=== PATIENT | male | born 1970 | race Caucasian/White ===

== ENCOUNTER 2018-09-28 09:34 | Emergency (ER) | payer BC ==
--- OUTSIDE RECORDS SUMMARY | 2018-09-28 09:57 | XMS REPORT ---
:1970 External Reference #:[id number] Author Organization [facility] Address [address] [place] [address] Phone [phone] Care Team Providers Name Role Phone Basil Montalvo Care Team Information Card Filer Unavailable Basil Montalvo Primary Care Physician Unavailable Payers Type Date Identification Payment Provider Subscriber Numbers Health Maintenance Effective: Policy Number: Essential Plan Stephani Solis [facility] (O) 10/02/2016 [id number] [employer] PayID: [id number] [address] [address] [place] [address] Problems Date Description Provider Status Onset: 07/10/2011 Extrinsic asthma without status Pablo Correa M.D. 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 Active Onset: 10/24/2017 Medial epicondylitis Basil Montalvo M.D. Active Onset: 12/15/2016 Mild intermittent asthma Basil Montalvo M.D. Active Onset: 11/18/2014 Benign prostatic hypertrophy without Basil Montalvo M.D. 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 Active Onset: 11/15/2011 Disorder of eye Pablo Correa M.D. Active Onset: 10/07/2011 Lyme disease Pablo Correa M.D. 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 Therapy /2017 evaluation Midura, bilateral M.D. medial epicondylitis Ventolin HFA 11/23 Active Aerosol 108(90Bas 8.5un inhale 2 puffs Basil T. /2015 e) its every 4 hours Midura, mcg/Act as needed M.D. Ritalin 03/31 Active Tablets 20mg 30tab 1 by mouth Basil T. /2014 s once a day as Midura, needed M.D. Vitamin D3 11/18 Active Capsules 1000Unit 2 Daily Basil T. High Potency /2014 Katia MUrsula Concerta 09/04 Active Tablets 54mg 30tab use by mouth F90.0 Basil T. /2012 ER s q.d as needed Katia M.D. Mometasone 07/01 Active Cream 0.1% 45uni apply 1 to 2 Basil T. Furoate /2010 ts times daily as Midrob, instructed. M.D. not for more than 2 weeks in arow. Multivitamin Active Tablets 1 po once or Unknown Adult /0000 twice a week Fish Oil 0000 Active Capsules once a wk Unknown /0000 Azithromycin 09/15 Hx Tablets 250mg 6tabs take 2 tablets R05 Lillian by mouth today Jennifer, - then take 1 INTEGRITY ASSESSOR 09/26 tablet daily /2017 for next 4 days L03.011 Doxycycline Hyclate 03/19/2018 - Hx Tablets 100mg 6tabs 2 by mouth once Basil T. 09/15/2018 for each deer Midura, tick bite M.D. Prochlorperazine 12/07/2017 - Hx Tablets 10mg 10tabs take one tablet R1 Carrol Uriarte. Maleate 02/08/2018 every 4-6 hours 9. Osiel, as needed. 7 MANAGER ANIM[employer] Lomotil 12/07/2017 - Hx Tablets 2.5-0.02 13tabs Take 2 pills to Carrol Uriarte. 02/07/2018 5mg start, then one Osiel, by mouth 4 MANAGER ANIMAL times per day for up to 3 days Physical Therapy 10/24/2017 - Hx treatment and 7 Basil Jiménez 02/07/2018 evaluation 7. Midura, bilateral 01 M.D. medial epicondylitis Medrol 10/24/2017 - Hx TBPK 4mg 1pack use as directed M7 Basil Jiménez 12/07/2017 for elbow 7. Midura, inflamation 01 M.D. Medrol Dosepak 10/22/2013 - Hx Tablets 4mg 1pack use as directed [address] [place] [address] 10/29/2014 9Rachael Goldstein M.D. Ritalin 10/18/2013 - Hx Tablets 20mg 60tabs 1 by mouth Lillian 10/30/2014 twice a day KOREY Rodriguez Prednisone 10/17/2013 - Hx Tablets 20mg 21tabs 2 po x 7d then [address] [place] [address] 10/22/2013 1 po qd x 7d 9. Rachael Rodriguez Voltaren 10/17/2013 - Hx Gel 1% 100gm apply to [address] [place] [address] 11/18/2014 painful areas 9. juan pablo Rodriguezd 42 KOREY Physcial Therapy 10/17/2013 - Hx 1units bilat tennis [address] [place] [address] 10/29/2014 elbow 9. Rachael Rodriguez Ritalin 03/21/2013 - Hx Tablets 20mg 60tabs 1 po bid Lillian 09/04/2013 KOREY Rodriguez Doxycycline Hyclate 09/06/2011 - Hx Tablets 100mg 42tabs one tab po bid 70 Shah 10/07/2011 for 21 days Keith. Judith Correa 9 Rafael Bactrim DS 07/02/2011 - Hx Tablets 800-160m 20tabs 1 po bid Shah 07/22/2011 darcy Correa M.D. Singulair 12/30/2010 - Hx Tablets 10mg 90tabs 1 po qd Shah 10/29/2014 Judith Correa M.D. Fexofenadine HCL 07/13/2010 - Hx Tablets 180mg 30tabs 1 po qd Shah 07/08/2011 Judith Correa M.D. Rosa D 24H 07/12/2010 - Hx 30units 1 po qd Shah 06/29/2011 Judith Correa M.D. Ibuprofen 03/10/2010 - Hx Tablets 800mg 50tabs 1 po q8 hours 72 [place] 07/08/2011 tid with food Sissy. Judith Correa, for next five 12 M.D. days then prn Physcial Therapy 03/10/2010 - Hx 1units r tennis elbow 72 [place] 06/29/2011 Cecilia Correa, 12 M.D. Azithromycin 03/09/2009 - Hx Tablets 250mg 9tabs 2 po daily for 47 [place] 12/15/2009 three days and Michaela Correa, one for three 0 M.D. days Prednisone 03/09/2009 - Hx Tablets 10mg 10tabs 2 daily x for 5 47 [place] 03/10/2010 days Michaela Correa, 0 M.DDanie Zithromax 01/07/2009 - Hx Tablets 250mg 6Tabs 2 po qd today , 46 Lillian 03/09/2009 then 1 po qd 6. Jennifer, times 4 0 INTEGRITY ASSESSOR Proventil HFA 12/05/2008 - Hx Aerosol 108mcg/A 1units 2 puffs q4h prn J4 Shah 11/17/2015 ct shortness of 5. Judith Correa breath 20 M.D. Proventil HFA 12/05/2008 - Hx Aerosol 108(90Ba 6.700gm 2 puffs every 4 Basil T. 11/23/2015 se) hours as needed Midura, mcg/Act M.DDanie Medrol Dosepack 05/01/2004 - Hx 4mg 1units as directed Shah 01/07/2009 Judith Correa M.D. Prednisone 02/15/1999 - Hx Tabs 20mg 18tabs 3Tabs PO qd X Geo J. 12/05/2008 3D, 2 T PO qd X Breiman, 3D, 1 PO qd M.D. X 3 Da And D/C Prednisolone 05/26/1997 - Hx 20mg 0units 2 PO qd For 2 D Randy FDanie 06/02/1997 Petr Snowden M.D. Dec By 1/2 Tab Q 2D, Then Stop Valisone Cream 05/26/1997 - Hx .1% 45gm Apply tid prn Randy FDanie 09/02/1998 Rafael Snowden Immunizations CPT Code Status Date Vaccine Reaction Lot # [id number] Given 09/06/2018 Influenza vac quadrivalent preservative free 3yrs and up [address] Given 10/11/2015 Influenza Vac, Quadriv[place], [place] [address] Given 08/26/2014 DO Not Use Split Influenza Virus Vaccine 62967 Given 08/06/2013 Preservative free flu 3 yrs+ and older [address] Given 09/04/2012 DO Not Use Split Influenza Virus Vaccine [id number] Given 07/22/2011 DO Not Use Split Influenza Virus no reaction noted [id number] Vaccine [id number] Given 07/08/2011 Tdap Tetanus, W Pertussis [id number] Vital Signs Date Vital Result Comment 09/26/2018 BP Systolic 140 mmHg BP Diastolic 82 mmHg Heart Rate 79 /min Body Temperature 97.7 F Respiratory Rate 16 /min O2 % BldC Oximetry 99 % Height 75.5 inches 6'3.50" measured 12/15/16 Weight 230.00 lb BMI (Body Mass Index) 28.4 kg/m2 09/15/2018 BP Systolic 134 mmHg BP Diastolic 66 mmHg Heart Rate 78 /min Body Temperature 97.2 F Respiratory Rate 17 /min O2 % BldC Oximetry 98 % Ra Height 75.5 inches 6'3.50" measured 12/15/16 Weight 227.38 lb BMI (Body Mass Index) 28.0 kg/m2 02/08/2018 BP Systolic 116 mmHg BP Diastolic 80 mmHg Heart Rate 96 /min Body Temperature 98.8 F Height 75.5 inches 6'3.50" measured 12/15/16 Weight 229.00 lb BMI (Body Mass Index) 28.2 kg/m2 12/07/2017 BP Systolic 104 mmHg BP Diastolic 62 mmHg Heart Rate 88 /min Body Temperature 99.1 F Respiratory Rate 16 /min Height 75.5 inches 6'3.50" measured 12/15/16 Weight 224.00 lb BMI (Body Mass Index) 27.6 kg/m2 10/24/2017 BP Systolic 122 mmHg BP Diastolic 78 mmHg Heart Rate 60 /min Body Temperature 97.8 F Respiratory Rate 18 /min Height 75.5 inches 6'3.50" measured 12/15/16 Weight 229.00 lb BMI (Body Mass Index) 28.2 kg/m2 08/10/2017 BP Systolic 122 mmHg BP Diastolic 82 mmHg Heart Rate 80 /min Body Temperature 98.1 F Height 75.5 inches 6'3.50" measured 12/15/16 Weight 230.00 lb BMI (Body Mass Index) 28.4 kg/m2 12/15/2016 BP Systolic 120 mmHg BP Diastolic 80 mmHg Heart Rate 78 /min Body Temperature 97.9 F Respiratory Rate 16 /min Height 75.5 inches 6'3.50" measured 12/15/16 Weight 228.12 lb BMI (Body Mass Index) 28.1 kg/m2 Right Visual Acuity Distance 20/20 corrected Left Visual Acuity Distance 20/50 corrected 11/17/2015 BP Systolic 126 mmHg BP Diastolic 90 mmHg Heart Rate 72 /min Body Temperature 97.8 F Respiratory Rate 16 /min Height 74.75 inches 6'2.75" measured 11/17/15 Weight 230.38 lb BMI (Body Mass Index) 29.0 kg/m2 Right Visual Acuity Distance 20/20 corrected Left Visual Acuity Distance 20/25 corrected 11/18/2014 BP Systolic 138 mmHg BP Diastolic 78 mmHg Heart Rate 88 /min Body Temperature 98.7 F Respiratory Rate 16 /min Height 76 inches 6'4" Weight 230.12 lb BMI (Body Mass Index) 28.0 kg/m2 10/30/2014 BP Systolic 140 mmHg BP Diastolic 90 mmHg Heart Rate 60 /min Body Temperature 97.0 F Height 76 inches 6'4" Weight 233.50 lb BMI (Body Mass Index) 28.4 kg/m2 10/17/2013 BP Systolic 134 mmHg BP Diastolic 90 mmHg Heart Rate 64 /min Body Temperature 98.6 F Respiratory Rate 18 /min Height 76 inches 6'4" Weight 225.00 lb BMI (Body Mass Index) 27.4 kg/m2 03/14/2013 BP Systolic 126 mmHg BP Diastolic 80 mmHg Heart Rate 76 /min Body Temperature 96.9 F Respiratory Rate 18 /min Height 76 inches 6'4" Weight 232.00 lb BMI (Body Mass Index) 28.2 kg/m2 12/20/2012 BP Systolic 110 mmHg BP Diastolic 70 mmHg Heart Rate 68 /min Body Temperature 98.4 F Respiratory Rate 16 /min Height 76 inches 6'4" Weight 232.00 lb BMI (Body Mass Index) 28.2 kg/m2 02/15/2012 BP Systolic 90 mmHg BP Diastolic 60 mmHg Heart Rate 68 /min Body Temperature 98.2 F Height 76 inches 6'4" Weight 226.00 lb BMI (Body Mass Index) 27.5 kg/m2 11/15/2011 BP Systolic 110 mmHg BP Diastolic 60 mmHg Heart Rate 60 /min Body Temperature 98.4 F Respiratory Rate 20 /min Height 76 inches 6'4" Weight 229.00 lb BMI (Body Mass Index) 27.9 kg/m2 Right Visual Acuity Distance 20/20 with corrective lens Left Visual Acuity Distance 20/20 10/07/2011 BP Systolic 98 mmHg BP Diastolic 64 mmHg Heart Rate 72 /min Body Temperature 97.0 F Height 76 inches 6'4" Weight 228.00 lb BMI (Body Mass Index) 27.8 kg/m2 09/06/2011 BP Systolic 102 mmHg BP Diastolic 60 mmHg Heart Rate 64 /min Body Temperature 98.8 F Respiratory Rate 20 /min Height 76 inches 6'4" Weight 228.00 lb BMI (Body Mass Index) 27.8 kg/m2 07/22/2011 BP Systolic 120 mmHg BP Diastolic 66 mmHg Heart Rate 66 /min Body Temperature 97.3 F Height 76 inches 6'4" Weight 226.00 lb BMI (Body Mass Index) 27.5 kg/m2 07/08/2011 BP Systolic 130 mmHg BP Diastolic 68 mmHg Heart Rate 72 /min Body Temperature 97.6 F Respiratory Rate 12 /min Height 76 inches 6'4" Weight 226.00 lb BMI (Body Mass Index) 27.5 kg/m2 07/01/2011 BP Systolic 100 mmHg BP Diastolic 68 mmHg Heart Rate 96 /min Body Temperature 99.6 F Respiratory Rate 12 /min O2 % BldC Oximetry 98 % Height 76 inches 6'4" Weight 232.00 lb BMI (Body Mass Index) 28.2 kg/m2 06/29/2011 BP Systolic 108 mmHg BP Diastolic 70 mmHg Heart Rate 68 /min Body Temperature 100.9 F Height 76 inches 6'4" Weight 231.00 lb BMI (Body Mass Index) 28.1 kg/m2 03/10/2010 BP Systolic 122 mmHg BP Diastolic 76 mmHg Heart Rate 76 /min Body Temperature 97.0 F Height 76 inches 6'4" Weight 226.00 lb BMI (Body Mass Index) 27.5 kg/m2 12/15/2009 BP Systolic 110 mmHg BP Diastolic 64 mmHg Heart Rate 88 /min Respiratory Rate 18 /min Weight 240.00 lb 03/09/2009 BP Systolic 118 mmHg BP Diastolic 78 mmHg Heart Rate 72 /min Body Temperature 98.0 F Height 76 inches 6'4" Weight 228.00 lb BMI (Body Mass Index) 27.8 kg/m2 01/07/2009 BP Systolic 116 mmHg BP Diastolic 68 mmHg Heart Rate 72 /min Body Temperature 98.1 F Height 76 inches 6'4" Weight 235.00 lb BMI (Body Mass Index) 28.6 kg/m2 12/05/2008 BP Systolic 120 mmHg BP Diastolic 72 mmHg Heart Rate 72 /min Height 76 inches 6'4" Weight 233.00 lb BMI (Body Mass Index) 28.4 kg/m2 09/02/1998 BP Systolic 150 mmHg BP Diastolic 80 mmHg Body Temperature 98.8 F Weight 218.00 lb 05/05/1998 BP Systolic 102 mmHg Ra LG Cuff BP Diastolic 58 mmHg Ra LG Cuff Body Temperature 97.8 F Weight 202.00 lb Results Test Date Test Result H/L Range Note Laboratory test 06/14/2018 Surgical Pathology SEE RESULT BELOW 1, 2 finding Ua - Non Micro (a) 02/08/2018 Appearance CLEAR Color YELLOW Glucose, U[place] [place] NEG Bilirubin NEG Ketones NEG SP Grav 1.020 Blood NEG PH 7.5 Protein NEG Urobil 0.2 Nitrite NEG Leukocytes (a[place]rex[place] NEG Comprehensive Metabolic Prof 02/08/2018 Sodium 141 mEq/L 134-149 Potassium 4.6 mEq/L 3.6-5.5 Chloride 105 mEq/L 94-112 Carbon Dioxide 29 mEq/L 21-32 Glucose 102 mg/dL 70-105 BUN 17 mg/dL 6-26 Creatinine 0.9 mg/dL 0.6-1.4 BUN/Creat Ratio 18.9 CALC 8.0-36.0 Calcium 9.4 mg/dL 8.6-10.2 Total Protein 7.3 g/dL 6.4-8.3 Albumin 4.8 g/dL 3.8-5.5 Globulin 2.5 g/dL 2.0-4.8 A/G Ratio 1.9 CALC 0.6-2.3 Alk. Phosphatase 50 U/L 22-95 Alt (SGPT) 19 U/L 7-35 Ast (Sgot) 15 U/L 5-34 Total Bilirubin 0.8 mg/dL 0.2-1.3 GFR Non- >60 ml/min/1.73m^ >=60 GFR >60 ml/min/1.73m^ >=60 Lipid Profile 02/08/2018 Cholesterol 195 mg/dL 120-200 Triglycerides 120 mg/dL 30-200 HDL Cholesterol 64 mg/dL 30-70 LDL (Calculated) 107 CALC 0-129 VLDL Cholesterol 24 mg/dL 0-50 HDL Risk Factor 3.0 CALC 0.0-4.4 Laboratory test finding 02/08/2018 PSA 1.0 ng/mL 0.0-4.0 CBC Electronic [facility]ma 02/08/2018 WBC 6.1 x10^3/UL 4.0-10.0 RBC 5.04 x10^6/UL 3.93-6.00 HGB 15.3 g/dL 12.0-17.0 HCT 44 % 35-50 MCV 87.1 fL 80.0-95.0 MCH 30.4 pg 25.6-32.2 MCHC 34.9 g/dL 32.2-36.0 RDW-CV 12.7 % 11.6-14.4 PLT 153 x10^3/UL Low 163-400 3 MPV 8.9 fL Low 9.4-12.4 Keke# 4.25 x10^3/UL 1.56-6.13 Lymph# 1.10 x10^3/UL Low 1.18-3.74 Sandoval# 0.64 x10^3/UL 0.24-0.82 Eos # 0.1 x10^3/UL 0.0-0.5 Baso # 0.02 x10^3/UL 0.01-0.08 Keke% 69.4 % 34.0-70.0 Lymph % 18.0 % Low 20.0-52.0 Sandoval% 10.5 % 5.0-12.0 Eos% 1.8 % 0.7-7.0 Baso% 0.3 % 0.1-1.2 Laboratory test finding 08/10/2017 PSA 0.9 ng/mL 0.0-4.0 Ua - Non Micro ([facility]ma) 12/15/2016 Appearance clear Color yellow Glucose, Urine ([facility]/CTX) neg Bilirubin neg Ketones neg SP Grav >=1.030 Blood neg PH 5.5 Protein neg Urobil 0.2 Nitrite neg Leukocytes ([facility]/Centrex) neg Laboratory test finding 12/15/2016 PSA 3.0 ng/mL 0.0-4.0 Lipid Profile 12/15/2016 Cholesterol 220 mg/dL High 120-200 Triglycerides 132 mg/dL 30-200 HDL Cholesterol 61 mg/dL 30-70 LDL (Calculated) 133 CALC High 0-129 VLDL Cholesterol 26 mg/dL 0-50 HDL Risk Factor 3.6 CALC 0.0-4.4 Comprehensive Metabolic Prof 12/15/2016 Sodium 140 mEq/L 134-149 Potassium 4.5 mEq/L 3.6-5.5 Chloride 104 mEq/L 94-112 Carbon Dioxide 25 mEq/L 21-32 Glucose 99 mg/dL 70-105 BUN 14 mg/dL 6-26 Creatinine 1.0 mg/dL 0.6-1.4 BUN/Creat Ratio 14.0 CALC 8.0-36.0 Calcium 9.6 mg/dL 8.6-10.2 Total Protein 6.9 g/dL 6.4-8.3 Albumin 4.5 g/dL 3.8-5.5 Globulin 2.4 g/dL 2.0-4.8 A/G Ratio 1.9 CALC 0.6-2.3 Alk. Phosphatase 60 U/L 22-95 Alt (SGPT) 22 U/L 7-35 Ast (Sgot) 18 U/L 5-34 Total Bilirubin 0.7 mg/dL 0.2-1.3 GFR Non- >60 ml/min/1.73m^ >=60 GFR >60 ml/min/1.73m^ >=60 Complete Blood Count 12/15/2016 WBC 4.1 x10^3/UL 3.6-9.6 RBC 4.77 x10^6/UL 3.90-5.70 HGB 14.7 g/dL 12.1-17.2 HCT 43 % 36-50 MCV 90.0 fL 82.2-97.4 MCH 30.7 pg 27.6-33.3 MCHC 34.1 g/dL 33.0-35.5 RDW 14.3 % High 11.6-13.7 PLT 179 x10^3/UL 150-400 MPV 6.1 fL Low 7.4-10.4 Gran # 2.6 x10^3/UL 1.5-7.2 Lymph# 1.3 x10^3/UL 0.7-4.9 Sandoval# 0.2 x10^3/UL 0.1-0.9 Gran % 59.3 % 42.2-75.2 Lymph % 33.8 % 20.5-51.1 Sandoval% 6.9 % 1.7-9.3 Ua - Non Micro (a) 11/17/2015 Appearance yellow Color clear Glucose, Urine ([place] [place] neg Bilirubin neg Ketones neg SP Grav 1.025 Blood neg PH 6.5 Protein neg Urobil 0.2 Nitrite neg Leukocytes ([facility] neg Complete Blood Count 11/17/2015 WBC 4.4 x10^3/UL 3.6-9.6 RBC 4.80 x10^6/UL 3.90-5.70 HGB 15.0 g/dL 12.1-17.2 HCT 44 % 36-50 MCV 92.0 fL 82.2-97.4 MCH 31.3 pg 27.6-33.3 MCHC 34.2 g/dL 33.0-35.5 RDW 13.5 % 11.6-13.7 PLT 162 x10^3/UL 150-400 MPV 6.9 fL Low 7.4-10.4 Gran # 3.1 x10^3/UL 1.5-7.2 Lymph# 1.2 x10^3/UL 0.7-4.9 Sandoval# 0.1 x10^3/UL 0.1-0.9 Gran % 67.6 % 42.2-75.2 Lymph % 28.0 % 20.5-51.1 Sandoval% 4.4 % 1.7-9.3 Comprehensive Metabolic Prof 11/17/2015 Sodium 135 mEq/L 134-149 Potassium 4.3 mEq/L 3.6-5.5 Chloride 97 mEq/L 94-112 Carbon Dioxide 31 mEq/L 21-32 Glucose 102 mg/dL 70-105 BUN 14 mg/dL 6-26 Creatinine 0.9 mg/dL 0.6-1.4 BUN/Creat Ratio 15.6 CALC 8.0-36.0 Calcium 8.8 mg/dL 8.6-10.2 Total Protein 7.2 g/dL 6.4-8.3 Albumin 4.6 g/dL 3.8-5.5 Globulin 2.6 g/dL 2.0-4.8 A/G Ratio 1.8 CALC 0.6-2.3 Alk. Phosphatase 52 U/L 22-95 Alt (SGPT) 22 U/L 7-35 Ast (Sgot) 16 U/L 5-34 Total Bilirubin 0.5 mg/dL 0.2-1.3 GFR Non- >60 ml/min/1.73m^ >=60 GFR >60 ml/min/1.73m^ >=60 Lipid Profile 11/17/2015 Cholesterol 204 mg/dL High 120-200 Triglycerides 81 mg/dL 30-200 HDL Cholesterol 55 mg/dL 30-70 LDL (Calculated) 133 CALC High 0-129 VLDL Cholesterol 16 mg/dL 0-50 HDL Risk Factor 3.7 CALC 0.0-4.4 Laboratory test finding 11/17/2015 PSA 0.7 ng/mL 0.0-4.0 4 Comprehensive Metabolic Prof 11/18/2014 Sodium 139 mEq/L 134-149 Potassium 3.7 mEq/L 3.6-5.5 Chloride 104 mEq/L 94-112 Carbon Dioxide 28 mEq/L 21-32 Glucose 78 mg/dL 70-105 BUN 18 mg/dL 6-26 Creatinine 1.1 mg/dL 0.6-1.4 BUN/Creat Ratio 16.4 CALC 8.0-36.0 Calcium 9.9 mg/dL 8.6-10.2 Total Protein 7.1 g/dL 6.4-8.3 Albumin 4.5 g/dL 3.8-5.5 Globulin 2.6 g/dL 2.0-4.8 A/G Ratio 1.7 CALC 0.6-2.3 Alk. Phosphatase 61 U/L 22-95 Alt (SGPT) 28 U/L 7-35 Ast (Sgot) 20 U/L 5-34 Total Bilirubin 0.5 mg/dL 0.2-1.3 Lipid Profile 11/18/2014 Cholesterol 217 mg/dL High 120-200 Triglycerides 119 mg/dL 30-200 HDL Cholesterol 54 mg/dL 30-70 LDL (Calculated) 139 CALC High 0-129 VLDL Cholesterol 24 mg/dL 0-50 HDL Risk Factor 4.0 CALC 0.0-4.4 Laboratory test finding 11/18/2014 PSA 0.6 ng/mL 0.0-4.0 Ua - Non Micro (a) 11/18/2014 Appearance clear Color yellow Glucose, Urine ([facility]/CTX) neg Bilirubin neg Ketones neg SP Grav >1.030 Blood neg PH 5.5 Protein neg Urobil 0.2 Nitrite neg Leukocytes ([facility]/Centrex) neg CBC Electronic (a) 11/18/2014 WBC 7.4 3.6-9.6 RBC 4.87 3.90-5.70 Hemoglobin ([facility]/CMC/CTX) 14.9 g/dL 12.1 - 17.2 Hematocrit ([facility]ma/CMC/CTX) 43.6 % 36.1 - 50.3 Platelets 171 10^3/ul 150-400 Lymph% 19.3 % 17.0-48.0 Mixed% 5.3 Neutrophils % 75.4 Mean Corpuscular Vol 90 82.2-97.4 Mean Corpuscular Hemoglobin 30.6 27.6-33.3 Mean Corpuscular Hemo Concen 34.2 32.0-36.0 RDW 14.1 High 11.6-13.7 Mean Platelet Volume 5.7 5.5-11.0 Lyme Western Blot Ser 09/06/2011 IgG P93 Ab. Absent IgG P66 Ab. Absent IgG P58 Ab. Present IgG P45 Ab. Present IgG P41 Ab. Present IgG P39 Ab. Present IgG P30 Ab. Present IgG P28 Ab. Absent IgG P23 Ab. Present IgG P18 Ab. Present Lyme IgG WB Interp. Positive 5 IgM P41 Ab. Present IgM P39 Ab. Absent IgM P23 Ab. Present Lyme IgM WB Interp. Positive 6 Lyme Igg/M W/RFX West 09/06/2011 Lyme IgG/IgM Ab 6.19 index High 0.00- 0.90 7 Lyme Ab Interp.,Eia Positive Lyme Disease Ab, Quant, IgM 9.43 index High 0.00-0.90 8 Lyme Ab IgM Interp., Eia Positive Laboratory test finding 09/06/2011 Sed Rate ([facility]/Centrex) 25mm Ebv Acute Infection Abs 07/22/2011 Ebv Ab Vca, IgM 3.1 AI High 0.0-0.8 9 Ebv Early Antigen Ab, IgG >8.0 AI High 0.0-0.8 10 Ebv Ab Vca, IgG >8.0 AI High 0.0-0.8 11 Ebv Nuclear Antigen Ab, IgG >8.0 AI High 0.0-0.8 12 Interpretation: SEE NOTE 13 CBC Electronic ([facility]) 07/22/2011 WBC 3.6 3.6-9.6 RBC 4.51 3.90-5.70 Hemoglobin ([facility]/CMC/CTX) 14.1 g/dL 12.1 - 17.2 Hematocrit ([facility]/CTX) 40.6 % 36.1 - 50.3 Platelets 184 10^3/ul 150-400 Lymph% 27.5 20.5-51.1 Mixed% 8.0 Neutrophils % 64.5 Mean Corpuscular Vol 90 82.2-97.4 Mean Corpuscular Hemoglobin 31.3 27.6-33.3 Mean Corpuscular Hemo Concen 34.7 32.0-36.0 RDW 12.5 11.6-13.7 Mean Platelet Volume 7.3 6.5-11.0 Basic Metabolic Profile 07/04/2011 BUN 14 mg/dL 6-26 Calcium 9.3 mg/dL 8.6-10.2 Chloride 105 mEq/L 94-112 Creatinine 1.1 mg/dL 0.6-1.4 Carbon Dioxide 24 mEq/L 21-32 Glucose 104 mg/dL 70-105 Sodium 139 mEq/L 134-149 Potassium 3.9 mEq/L 3.6-5.5 BUN/Creat Ratio 12.9 Calc 8.0-36.0 CBC Electronic ([facility]) 07/04/2011 WBC 5.5 3.6-9.6 RBC 4.04 3.90-5.70 Hemoglobin ([facility]/CMC/CTX) 12.3 g/dL 12.1 - 17.2 Hematocrit ([facility]/CMC/CTX) 36.2 % 36.1 - 50.3 Platelets 218 10^3/ul 150-400 Lymph% 21.3 20.5-51.1 Mixed% 7.7 Neutrophils % 71.0 Mean Corpuscular Vol 90 82.2-97.4 Mean Corpuscular Hemoglobin 30.4 27.6-33.3 Mean Corpuscular Hemo Concen 33.9 32.0-36.0 RDW 12.2 11.6-13.7 Mean Platelet Volume 7.0 6.5-11.0 Laboratory test 07/04/2011 Hemoglobin A1c 5.1 % 4.1-5.7 finding ([facility]/CMC,CX) Anaerobic Culture 07/01/2011 Anaerobic Culture NG5 14, 15 Bottle Bottle Blood Culture 07/01/2011 Aerobic Culture Bottle NG5 14, 16 Thyroid Panel 07/01/2011 Free Thyroxine 0.74 ng/dL 0.61-1.24 14 Thyroxine 5.6 g/dL 5-12 14 TSH 1.44 MIU/ML 0.34-5.60 14 Laboratory test finding 07/01/2011 Amylase 25 U/L 20-120 14, 17 Lipase 19 U/L Low 22-51 14 C Reactive Protein 19.8 mg/dL High Less Than 0.5 14 CPK (Creatine Kinase) 59 U/L 0-200 14 Comp Metabolic Panel 07/01/2011 Sodium 133 mmol/L Low 135-145 14 Potassium 4.0 mmol/L 3.5-5.0 14 Chloride 101 mmol/L 101-111 14 Co2 (Carbon Dioxide) 28.0 mmol/L 22-32 14 Anion Gap 4.0 mmol/L 2-11 14, 18 Glucose 123 mg/dL High 70-100 14 BUN 7 mg/dL 6-24 14 Creatinine 0.9 mg/dL 0.50-1.40 14 One Over Creatinine 1.11 14 BUN/Creatinine Ratio 7.8 Low 8-20 14 Calcium 8.3 mg/dL 8.1-9.9 14 Total Protein 5.9 GM/DL Low 6.2-8.1 14 Albumin 3.3 GM/DL Low 3.6-5.4 14 Globulin 2.6 GM/DL 2-4 14 Albumin/Globulin Ratio 1.3 1-3 14 Bilirubin Total 0.9 mg/dL 0.4-1.5 14, 19 Alkaline Phosphatase 85 U/L 39-117 14 Alt (SGPT) 59 U/L 17-63 14 Ast (Sgot) 46 U/L High 12-42 14 eGFR Non- 93.0 > 60 14 eGFR 119.6 > 60 14, 20 CBC Auto Diff 07/01/2011 White Blood Count 3.9 CUMM Low 4.8-10.8 14 Red Cell Count 4.00 CUMM Low 4.6-6.2 14 Hemoglobin 12.4 g/dL Low 14.0-18.0 14 Hematocrit 36 % Low 42-52 14 Mean Corpuscular Volume 89 um3 80-94 14 Mean Corpuscular Hemoglob 31 pg 27-31 14 Mean Corpuscular HGB Cone 35 g/dL 32-36 14 Redcell Distribution WDTH 14 % 10.5-15 14 Platelet Count 87 CUMM Low 150-450 14, 21 Mean Platelet Volume 7.7 um3 7.4-10.4 14 Gran % 77.7 % 38-83 14 Lymph % 10.3 % Low 25-47 14 Mononuclear % 11.9 % High 1-9 14 Eosinophil % 0.1 % 0-6 14 Basophil % 0 % 0-2 14 Abs Lymphs 0.4 Low 1.0-4.8 14 Abs Mononuclear 0.5 0-0.8 14 Absolute Neutrophil Count 3.0 1.5-7.7 14 Abs Eosinophils 0 0-0.6 14 Abs Basophils 0 0-0.2 14, 22 Urinalysis W/Microscopic 07/01/2011 Ua Color YELLOW Yellow Appearance-Urine CLEAR Clear Specific [place]-Ur 1.010 1.010-1.030 Esterase-Urine NEGATIVE Negative Nitrite NEGATIVE Negative Fsweeuwntcus-Lg-BUN NEGATIVE Negative Protein-Urine 1+ Negative PH-Urine 8.0 5-9 Blood-Urine NEGATIVE Negative Ketones-Urine NEGATIVE Negative Bilirubin-Ur NEGATIVE Negative Glucose-Urine NEGATIVE Negative WBC-Urine 0-2 0-5 RBC-Urine 0-2 0-2 Epith Cells-Ur RARE None Laboratory test finding 07/01/2011 Lactic Acid 0.7 mmol/L 0.5-1.6 Comprehensive Metabolic Prof 06/29/2011 Albumin 4.6 g/dL 3.8-5.5 Alk. Phos. 61 U/L 22-95 Alt (SGPT) 25 U/L 10-40 Ast (Sgot) 23 U/L 5-34 BUN 14 mg/dL 6-26 Calcium 8.8 mg/dL 8.6-10.2 Chloride 102 mEq/L 94-112 Creatinine 1.0 mg/dL 0.6-1.4 Carbon Dioxide 22 mEq/L 21-32 Glucose 120 mg/dL High 70-105 23 Sodium 135 mEq/L 134-149 Total Bilirubin 0.8 mg/dL 0.2-1.3 Total Protein 7.1 g/dL 6.3-8.1 Potassium 4.0 mEq/L 3.6-5.5 Globulin 2.5 g/dL 2.0-4.8 A/G Ratio 1.8 Calc 0.6-2.2 BUN/Creat Ratio 13.6 Calc 8.0-36.0 Laboratory test finding 06/29/2011 TSH 1.52 mIU/L 0.50-6.00 Lipid Profile 06/29/2011 Cholesterol 176 mg/dL 120-200 HDL 44 mg/dL 30-70 Triglycerides 106 mg/dL 30-200 HDL Risk Factor 4.0 CALC 0.0-4.0 LDL (Calculated) 110 CALC 0-129 VLDL (Calculated) 21 mg/dL 0-50 Laboratory test finding 06/29/2011 Monospot (a/Centrex) NEG CBC Manual Diff-[facility] 06/29/2011 WBC 4.8 3.6-9.6 RBC 5.13 3.90-5.70 Hemoglobin (Fma/CMC/CTX) 15.8 g/dL 12.1 - 17.2 Hematocrit (Fma/CMC/CTX) 46.0 % 36.1 - 50.3 Mean Corpuscular Vol 90 82.2-97.4 Mean Corpuscular Hemoglobin 30.8 27.6-33.3 Mean Corpuscular Hemo Concen 34.3 32.0-36.0 Platelets 138 10^3/ul Low 150-400 RDW 12.5 11.6-13.7 Mean Platelet Volume 7.4 6.5-11.0 Neutrophil 60 Band 26 Lymphocytes 7 Monocyte 4 Eosinophils 3 Basophils - Metamyelocytes - Myelocytes - Promyelocytes - Blast - Atypical Lymph - NRBC - Anisocytosis (Fma/CMC/Centrex) - Hypochrom - Polychrom - Poikilocytosis - Macrocytosis - Microcytosis (Fma/CMC/Centrex) - Z#Comment RBC/PLTS NORMAL Ua - Non Micro ([facility]) 06/29/2011 Appearance yellow Color clear Glucose, Urine ([facility]) neg Bilirubin neg Ketones 80 SP Grav 1.015 Blood neg PH 8.5 Protein neg Urobil 1.0 Nitrite neg Leukocytes (a/[facility]) neg Laboratory test finding 06/29/2011 Sed Rate (a/[facility]) 18mm Influenza A&B 06/29/2011 Influenza A NEG Influenza B NEG Lyme Igg/M W/RFX West 06/29/2011 Lyme IgG/IgM Ab <0.91 index 0.00-0.90 24 Lyme Disease Ab, Quant, IgM 0.93 index High 0.00-0.90 25 Lyme Ab IgM Interp., Eia Equivocal Lyme Western Blot Ser 06/29/2011 IgG P93 Ab. Absent IgG P66 Ab. Absent IgG P58 Ab. Absent IgG P45 Ab. Absent IgG P41 Ab. Present IgG P39 Ab. Absent IgG P30 Ab. Absent IgG P28 Ab. Absent IgG P23 Ab. Absent IgG P18 Ab. Absent Lyme IgG WB Interp. Negative 26 IgM P41 Ab. Absent IgM P39 Ab. Absent IgM P23 Ab. Present Lyme IgM WB Interp. Negative 27 1 [id number] 2 SEE RESULT BELOW Name: STEPHANI SOLIS : [address]: Gaston Vallejo MD Acct: [id number] Unit: [id number] AGE: 47 Location: [facility] Re06/14/18 SEX: M Status: DEP REF SPEC: [id number] LULY: 06/14/18-120 [facility] DR: Gaston Vallejo MD REQ: [id number] RECD: 06/14/180746 STATUS: LANDRY BARAHONA DR: Basil Montalvo MD _ ORDERED: LEVEL 4 COMMENTS: [id number] FINAL DIAGNOSIS Colon, at 15 cm, biopsy: -- Hyperplastic polyp. CLINICAL HISTORY Screening/Surveillance for malignancy in asymptomatic patient POST-OPERATIVE DIAGNOSIS Colonoscopy: to terminal ileum; at 15 cm - biopsy GROSS DESCRIPTION The specimen is received in formalin labeled, Colon Polyp Biopsy at 15 cm, and consists of a 0.3 x 0.3 x 0.2 cm pringle-pink irregular soft tissue fragment which is submitted entirely in one cassette. Signed by and Reported on: Hermelinda Morris MD 06/15/181205 END OF REPORT DEPARTMENT OF PATHOLOGY, [address] [place] [address] Joaquim Hanson M.D. Director [facility] # [id number] 3 RESULTS VERIFIED BY REPEAT ANALYSIS 4 FASTING 5 Positive: 5 of the following Borrelia-specific bands: 18,23,28,30,39,41,45,58, 66, and 93. Negative: No bands or banding patterns which do not meet positive criteria. . 6 Note: An equivocal or positive EIA result followed by a negative Western Blot result is considered NEGATIVE. An equivocal or positive EIA result followed by a positive Western Blot is considered POSITIVE by the CDC. . Positive: 2 of the following bands: 23,39 or 41 Negative: No bands or banding patterns which do not meet positive criteria. Criteria for positivity are those recommended by CDC/ASTPHLD. p23=Osp C, d01=cknsjgruj . Note: Sera from individuals with the following may cross react in the Lyme Western Blot assays: other spirochetal diseases (periodontal disease, leptospirosis, relapsing fever, yaws, and pinta); connective autoimmune (Rheumatoid Arthritis and Systemic Lupus Erythematosus and also individuals with Antinuclear Antibody); other infections ([place] Spotted Fever; Bambi-Leon Virus, and Cytomegalovirus). . . 7 Negative <0.91 Equivocal 0.91 - 1.09 Positive >1.09 Note: The CDC currently advises that Western blot testing be performed following all equivocal or positive EIA results. Final diagnosis should include appropriate clinical findings and a positive EIA which is also positive by Western blot. 8 Negative <0.91 Equivocal 0.91 - 1.09 Positive >1.09 . Note: IgM levels may peak at 3-6 weeks post infection, then gradually decline. FDA currently advises that Western Blot testing be performed following all equivocal or positive EIA results. Final diagnosis should include appropriate clinical findings and a positive EIA which is also positive by Western Blot. 9 Negative <0.9 Equivocal 0.9 - 1.0 Positive >1.0 10 Negative <0.9 Equivocal 0.9 - 1.0 Positive >1.0 11 Negative <0.9 Equivocal 0.9 - 1.0 Positive >1.0 12 Negative <0.9 Equivocal 0.9 - 1.0 Positive >1.0 13 EBV Interpretation Chart . Interpretation VCA-IgM EA-IgG VCA-IgG NA-ABS . Susceptible - - - - Acute Infection + +or- +or- - Convalescent Phase +or- +or- + + Chronic or Reactivated - + + +or- Old Infection - - +or- + + Antibody Present - Antibody Absent 14 COMMENTS: N 15 NO GROWTH AFTER 5 DAYS 16 NO GROWTH AFTER 5 DAYS 17 PLEASE NOTE NEW REFERENCE RANGE. 18 Anion gap measurement may be of limited value in the presence of any alkalosis, especially in a combined acid base disorder. . 19 A metabolite of Naproxen, O-desmethylnaproxen, has been shown to interfere with the Jendrassik-Gibson method for measuring total bilirubin. Samples from patients who have taken Naproxen have shown spurious elevation in total bilirubin levels. 20 Because ethnic data is not always readily available, this report includes an eGFR for both -Americans and non- Americans. The National Kidney Disease Education Program (NKDEP) does not endorse the use of the MDRD equation for patients that are not between the ages of 18 and 70, are , have extremes of body size, muscle mass, or nutritional status, or are non- or non-. According to the National Kidney Foundation, irrespective of diagnosis, the stage of the disease is based on the level of kidney function: Stage Description GFR(mL/min/1.73 m(2)) 1 Kidney damage with normal or decreased GFR 90 2 Kidney damage with mild decrease in GFR 60-89 3 Moderate decrease in GFR 30-59 4 Severe decrease in GFR 15-29 5 Kidney failure <15 (or dialysis) 21 NO CLUMPS SEEN ON SMEAR PLATELET COUNT CONFIRMED BY SMEAR ESTIMATE 22 Lymphopenia % Thrombocytopenia 23 RESULT COREY'D 24 Negative <0.91 Equivocal 0.91 - 1.09 Positive >1.09 Note: The CDC currently advises that Western blot testing be performed following all equivocal or positive EIA results. Final diagnosis should include appropriate clinical findings and a positive EIA which is also positive by Western blot. 25 Negative <0.91 Equivocal 0.91 - 1.09 Positive >1.09 . Note: IgM levels may peak at 3-6 weeks post infection, then gradually decline. FDA currently advises that Western Blot testing be performed following all equivocal or positive EIA results. Final diagnosis should include appropriate clinical findings and a positive EIA which is also positive by Western Blot. 26 Positive: 5 of the following Borrelia-specific bands: 18,23,28,30,39,41,45,58, 66, and 93. Negative: No bands or banding patterns which do not meet positive criteria. 27 Note: An equivocal or positive EIA result followed by a negative Western Blot result is considered NEGATIVE. An equivocal or positive EIA result followed by a positive Western Blot is considered POSITIVE by the CDC. . Positive: 2 of the following bands: 23,39 or 41 Negative: No bands or banding patterns which do not meet positive criteria. Criteria for positivity are those recommended by CDC/ASTPHLD. p23=Osp C, n38=pcmxjliov . Note: Sera from individuals with the following may cross react in the Lyme Western Blot assays: other spirochetal diseases (periodontal disease, leptospirosis, relapsing fever, yaws, and pinta); connective autoimmune (Rheumatoid Arthritis and Systemic Lupus Erythematosus and also individuals with Antinuclear Antibody); other infections ([place] Spotted Fever; Bambi-Leon Virus, and Cytomegalovirus). . Procedures Date CPT Code Description Status 06/14/2018 Colonoscopy Completed 12/15/2016 85378 Vision Test- screening test of visual acuity, Completed quantitative, bila 11/17/2015 24287 Vision Test- screening test of visual acuity, Completed quantitative, bila 11/15/2011 73926 Vision Test- screening test of visual acuity, Completed quantitative, bila 07/01/2011 54346 Pulse Oximetry Completed Encounters Type Date Location Provider CPT E/M Dx Office Visit 09/15/2018 10:30a Main Office KOREY Sung 97800 R05 L03.011 Office Visit 02/08/2018 1:20p [facility] Basil Montalvo M.D. 56834 Z00.01 F90.0 N40.0 J45.20 E78.4 D48.5 Office Visit 12/07/2017 3:30p [place] [address] R19.7 Office Visit 10/24/2017 2:00p Main Office Basil Montalvo M.D. 53480 M77.01 M77.02 Office Visit 08/10/2017 11:00a [facility] Basil Montalvo M.D. 00911 F90.0 N40.0 Office Visit 12/15/2016 1:00p [facility] Basil Montalvo M.D. 06095 Z00.00 F90.0 J45.20 N40.0 Office Visit 11/17/2015 10:20a Main Office Basil Montalvo M.D. 41628 Z00.00 F90.0 J45.20 N40.0 Office Visit 11/18/2014 7:20p Main Office Basil Montalvo M.D. 20298 V70.0 314.00 600.00 493.00 Office Visit 10/30/2014 9:00a [facility] Lillian Rodriguez, [facility] 44487 314.00 Office Visit 10/17/2013 3:00p [facility] Lillian Rodriguez, [facility] 42154 719.42 Office Visit 03/14/2013 10:30a [facility] Lillian Rodriguez, [facility] 04978 314.00 Office Visit 12/20/2012 10:00a [facility] Office Krysta Huffman Afnp-C 66752 709.9 Office Visit 02/15/2012 1:20p [facility] Office Pablo Correa M.D. 01497 553.1 Office Visit 11/15/2011 9:00a [facility] Pablo Correa M.D. 57286 379.90 Office Visit 10/07/2011 9:40a [facility] Pablo Correa M.D. 03152 088.81 Office Visit 09/06/2011 11:40a [facility] Pablo Correa M.D. 94187 709.9 Office Visit 07/22/2011 10:40a [facility] Pablo Correa M.D. 04707 780.79 v04.81 Office Visit 07/08/2011 9:00a [facility] Pablo Correa M.D. 82121 780.79 V25.09 V06.5 Office Visit 07/01/2011 9:00a [facility] Pablo Correa M.D. 79730 V70.0 780.79 Office Visit 06/29/2011 10:40a [facility] Pablo Correa M.D. 29971 780.60 780.79 V77.91 Office Visit 03/10/2010 4:00p [facility] Office Pablo Correa M.D. 49236 726.12 Office Visit 12/15/2009 4:00p [facility] Pablo Correa M.D. 92928 553.1 493.00 Office Visit 03/09/2009 11:20a [facility] Pablo Correa M.D. 63096 473.0 Office Visit 01/07/2009 2:15p [facility] Lillian Rodriguez, [facility] 07816 466.0 Office Visit 12/05/2008 9:30a [facility] Pablo Correa M.D. 32301 995.3 493.00 V16.49 Plan of Care 09/26/2018 - Hermelinda Godwin, [id number] CoughNew Medication:Advair Diskus 100-50 mcg/DoseD48.5 Neoplasm of uncertain behavior of skinAllComments:~B_~U_ Medication Management~b_~u_ Patient Understands medications he 's taking? Yes No Are there Barriers to Adherence? Yes No Has the patient been asked about herbal supplements and therapies, and OTC meds? Yes No As always, we strongly encourage a healthy diet and makingphysical activity a part of your every day life. If you have questions about how or where to start, please contact the office.
--- NOTE | 2018-09-28 11:19 | UC ---
Skin Complaint HPI - HPI Summary HPI Summary: 48-year-old male presents with a lesion to his right middle finger. States began approximately one month ago as a small pimple-like lesion. States approximately one week later the lesion began to "fester" so he opened the lesion, noted a small dark-colored foreign body which he removed. States over next 2 weeks lesion continued to increase in size and began bleeding continuously. He was evaluated by his PCP 2 days ago who referred him to Dr. Hernadez, dermatology. He has an appointment for October 04, 2018 but is concerned because the lesion continues to increase in size and he cannot stop the bleeding. Denies fever, chills, pain, swelling, purulent drainage, joint pain or swelling, numbness or tingling. - History of Current Complaint Chief Complaint: UCSkin Time Seen by Provider: 09/28/18 10:01 Stated Complaint: SOFT TISSUE Hx Obtained From: Patient Pain Intensity: 2 - Allergy/Home Medications Allergies/Adverse Reactions: Allergies Allergy/AdvReac Type Severity Reaction Status Date / Time Penicillins Allergy Hives Verified 09/28/18 10:00 PMH/Surg Hx/FS Hx/Imm Hx Previously Healthy: Yes - Denies significant PMH - Surgical History Surgical History: Yes Surgery Procedure, Year, and Place: electives - Family History Known Family History: Positive: Non-Contributory - Social History Occupation: Employed Full-time Lives: With Family Alcohol Use: Daily Substance Use Type: Marijuana Smoking Status (MU): Never Smoked Tobacco Review of Systems All Other Systems Reviewed And Are Negative: Yes Constitutional: Negative: Fever, Chills Skin: Positive: Other - See HPI Respiratory: Positive: Negative Cardiovascular: Positive: Negative Gastrointestinal: Positive: Negative Motor: Positive: Negative Neurovascular: Positive: Negative Musculoskeletal: Positive: Negative Is Patient Immunocompromised?: No Physical Exam - Summary Physical Exam Summary: GENERAL APPEARANCE: Well developed, well nourished, alert and cooperative, and appears to be in no acute distress. CARDIAC: Normal S1 and S2. No S3, S4 or murmurs. Rhythm is regular. There is no peripheral edema, cyanosis or pallor. Extremities are warm and well perfused. Capillary refill is less than 2 seconds. LUNGS: Clear to auscultation and percussion without rales, rhonchi, wheezing or diminished breath sounds. ABDOMEN: Positive bowel sounds. Soft, nondistended, nontender. No guarding or rebound. No masses or hepatosplenomegally. MUSKULOSKELETAL: ROM intact to all extremities. No joint erythema or tenderness. Normal muscular development. Normal gait. EXTREMITIES: No significant deformity or joint abnormality. No edema. Peripheral pulses intact. NEUROLOGICAL: Strength and sensation symmetric and intact throughout. SKIN: 1 cm red, circular, friable, lesion to the palmar aspect of the proximal right middle finger that is pedunculated at its base. Triage Information Reviewed: Yes Vital Signs: Initial Vital Signs Temp 98 F 09/28/18 09:57 Pulse 86 09/28/18 09:57 Resp 15 09/28/18 09:57 BP 134/83 09/28/18 09:57 Pulse Ox 100 09/28/18 09:57 Vital Signs Reviewed: Yes Diagnostics - Radiology No standard instances Radiology Interpretation Completed By: Radiologist Summary of Radiographic Findings: Patient Name: STEPHANI SOLIS . Ordering Physician: Constantino Locke NP Acct.#: [id number] : 1970 Age: 48 Sex: M Location: [facility]. Exam Date: 09/28/18 1031 ADM Status: REG ER. Order Information: HAND - RIGHT MINIMUM 3 VIEWS. Accession Number: [id number]. CPT: 06423. INDICATION: Wound at the base of the RIGHT third finger for one month. Redness and. swelling. Concern for osteomyelitis. COMPARISON: No relevant prior exams available on the [facility] PACS for comparison. TECHNIQUE: AP, lateral, and oblique views RIGHT hand. REPORT: No periosteal reaction, osteolysis, or osteosclerosis evident to raise concern for. osteomyelitis. Fusiform soft tissue swelling at the second and third fingers and over the. dorsum of the hand at the level of the metacarpal phalangeal joints. Negative for. fracture or malalignment. IMPRESSION: #. No radiographic evidence for osteomyelitis. If there is persistent clinical concern for. osteomyelitis consider MRI or in setting of contraindication to MRI 3 phase bone scan for. further assessment. Course/Dx - Course Course Of Treatment: 48-year-old male presents with a lesion to his right middle finger. States began approximately one month ago as a small pimple-like lesion. States approximately one week later the lesion began to "fester" so he opened the lesion, noted a small dark-colored foreign body which he removed. States over next 2 weeks lesion continued to increase in size and began bleeding continuously. He was evaluated by his PCP 2 days ago who referred him to Dr. Hernadez, dermatology. He has an appointment for October 04, 2018 but is concerned because the lesion continues to increase in size and he cannot stop the bleeding. Denies fever, chills, pain, swelling, purulent drainage, joint pain or swelling, numbness or tingling. Afebrile. Vital signs stable. Exam reveals a 1 cm red, circular, friable, lesion to the palmar aspect of the proximal right middle finger that is pedunculated at its base. Lesion is likely a pyogenic granuloma however cannot fully rule out malignancy. Discussed with patient that I could excise the lesion and cauterize any bleeding areas however I do not have the formalin to preserve the specimen for pathology therefore would not be able to provide a definitive diagnosis. Dicussed case with Dr. Storey, dermatology, who agreed with presumptive diagnosis however is also in agreement that pathology should be performed. She feels based on the presumptive diagnosis that the patient is ok to wait until next week to have it excised by Dr. Hernadez however states she is also willing to see patient today but he would have to wait at office until she was free since she had a full schedule. This information was relayed to the patient and he is electing to follow up next week with Dr. Hernadez. I did speak to the mosquito sprayer earlier who said they could move his appointment up to October 03 however could not reach them again therefore left message to call patient to confirm appointment. Patient is to call the office in 2 hours if he does not receive confirmation. Warning symptoms were reviewed with patient. Verbalizes understanding and agrees with POC. - Differential Diagnoses - Skin Complaint Differential Diagnoses: Abscess, Cellulitis, Foreign Body - Diagnoses Provider Diagnosis: Pyogenic granuloma of skin - Physician Notification/Consults Discussed Patient Care With: Doris Storey Time Discussed With Above Provider: 12:00 Instructed by Provider To: Other - Discussed case with Dr. Storey who agrees that based on history and discription of lesion that this is likely a pyogenic granuloma and agrees that it should be sent for patholgy to rule out malignancy. She is willing to see patient in her office today but would have to fit into her schedule and cannot give a specific time for evaluation. Feels he would be ok to wait until next week for scheduled appointment with Dr. Hernadez with precautions for urgent evaluation in the emergency room. Discharge - Sign-Out/Discharge Documenting (check all that apply): Patient Departure All imaging exams completed and their final reports reviewed: Yes - Discharge Plan Condition: Stable Disposition: HOME Referrals: Basil Montalvo MD [Primary Care Provider] - Jet Hernadez MD [Medical Doctor] - (As scheduled.) Additional Instructions: I suspect that the lesion on your finger is a pyogenic granuloma however I cannot rule out another condition without sending the lesion for biopsy. Unfortunately we do not have the capacity to send it for pathology as is recommended. I spoke with Dr. Hernadez's office and they should be able to get you an earlier appointment on October 03 however I could not get through to the mosquito sprayer again therefore I left a message to have them call you and confirm the appointment. Seek immediate medical attention in the emergency room if you develop fever greater than 100.5 F, have increased pain or swelling of the finger, pus draining from the wound, or any worsening of symptoms. - Billing Disposition and Condition Condition: STABLE Disposition: Home
[2018-09-28 12:05] VITALS: BP 122/75
== END 2018-09-28 12:43 | disposition home or self-care (01) ==
LOC: UCEAST 09:34
DX: L92.9 Granulomatous disorder of the skin and subcutaneous tissue, unspecified (principal); Z88.0 Allergy status to penicillin
CPT/HCPCS: 99211; G0463